=== PATIENT | female | born 1990 | race Two or more races ===

== ENCOUNTER 2024-10-27 06:13 | Emergency (ER) | payer OTHER ==
[~2024-10-27] VITALS: Ht 157.5 cm; Wt 68.0 kg
== END 2024-10-27 10:48 | disposition home or self-care (01) ==
LOC: ER 06:16
DX: S93.492A Sprain of other ligament of left ankle, initial encounter (principal); W19.XXXA Unspecified fall, initial encounter; Y93.I9 Activity, other involving external motion; Y92.89 Other specified places as the place of occurrence of the external cause; Y99.8 Other external cause status